=== PATIENT | female | born 1970 | race African-American/Black ===

== ENCOUNTER 2021-11-03 00:59 | Emergency (ER) | payer SELFPAY ==
[~2021-11-03] VITALS: Ht 167.6 cm; Wt 73.0 kg
[2021-11-03 01:03] VITALS: BP 114/85
[2021-11-03] MEDS ORDERED: ONDANSETRON HCL 4MG/2ML INJ IV STA (01:29)
[2021-11-03] MEDS ORDERED: SODIUM CHLORIDE 0.9% 1,000 ML IV ONE (01:30)
== END 2021-11-03 03:30 ==
LOC: ER 00:59
DX: R41.82 Altered mental status, unspecified (principal)
CPT/HCPCS: 71045; 99291; J7030